=== PATIENT | female | born 1940 | race Caucasian/White ===

== ENCOUNTER 2022-05-30 12:06 | Emergency (ER) | payer MEDICARE ==
[~2022-05-30] VITALS: Ht 162.6 cm; Wt 45.5 kg
[2022-05-30] MEDS ORDERED: KETOROLAC TROMETHAMINE 30 MG/ML VIAL IVP ONE (14:15)
[2022-05-30] MEDS ORDERED: MORPHINE SULFATE 2 MG/ML SYRINGE IVP ONE (14:15)
[2022-05-30] MEDS ORDERED: ACETAMINOPHEN 325 MG TABLET PO ONE (15:15)
[2022-05-30] MEDS ORDERED: LIDOCAINE 5% TRANSDERMAL PATCH TD ONE (15:15)
[2022-05-30 16:42] VITALS: BP 133/80
[2022-05-30] MEDS ORDERED: IBUP-1506 PO (16:59)
[2022-05-30] MEDS ORDERED: CYCL-448 PO (16:59)
== END 2022-05-30 17:17 | disposition home or self-care (01) ==
LOC: EMS 12:10
DX: M54.50 Low back pain, unspecified (principal); E78.00 Pure hypercholesterolemia, unspecified; I10 Essential (primary) hypertension; W19.XXXA Unspecified fall, initial encounter; Y93.89 Activity, other specified; Y92.89 Other specified places as the place of occurrence of the external cause; Y99.8 Other external cause status; Z87.310 Personal history of (healed) osteoporosis fracture
CPT/HCPCS: 99283; 96374; 96375; 72100; 93005; J1885; J2270